=== PATIENT | female | born 1980 | race Caucasian/White ===

== ENCOUNTER 2021-01-17 14:32 | Emergency (ER) | payer BC, OTHER ==
[2021-01-17 15:46] LABS: HEMOGLOBIN 14.6 gm/dl (12.3-15.3); RED BLOOD COUNT 4.76 M/UL (4.00-5.10); WHITE BLOOD COUNT 6.5 K/UL (4.5-11.0)
[2021-01-17 16:10] LABS: BUN/CREATININE RATIO 9 (0-10)
== END 2021-01-17 17:55 | disposition home or self-care (01) ==
LOC: ER1 14:32 → EDBD 14:32 → ER1 17:55
PROVIDERS: Physician Assistant Medical
DX: R00.2 Palpitations (principal); Z88.1 Allergy status to other antibiotic agents; Z79.899 Other long term (current) drug therapy
CPT/HCPCS: 36415; 71045; 80053; 81001; 82550; 82553; 83874; 84439; 84443; 84484; 84703; 85025; 85379; 93005; 99285

== ENCOUNTER 2022-02-12 14:40 | Emergency (ER) | payer BC ==
[2022-02-12] MEDS ORDERED: IBUPROFEN600 MG PO (15:53)
== END 2022-02-12 16:17 | disposition home or self-care (01) ==
LOC: ER1 14:40
DX: S93.402A Sprain of unspecified ligament of left ankle, initial encounter (principal); Z88.2 Allergy status to sulfonamides; W19.XXXA Unspecified fall, initial encounter; Y92.009 Unspecified place in unspecified non-institutional (private) residence as the place of occurrence of the external cause; Y93.9 Activity, unspecified
CPT/HCPCS: 73610; 73630; 99283